=== PATIENT | male | born 1970 | race Caucasian/White ===

== ENCOUNTER 2024-11-19 15:40 | Inpatient (IN) | payer BC, SELFPAY ==
[2024-11-19] VITALS (7 sets, daily range): BP systolic 108–122; BP diastolic 68–87; PULSE 68–98; RESP 16–18; TEMP 36.5–36.7; O2SAT 95–100; BMI 32.5; BMI 31.4
--- NOTE | 2024-11-19 16:41 | EX.ED.SAOD ---
HPI History of Present Illness Chief Complaint: ETOH Intox Narrative Narrative: 54-year-old male past medical history of diabetes and hypertension presents for detox from alcohol. He states that he has been drinking alcohol since he was 18 years old. He presents with his family who state that he has had problems with alcohol, and low potassium and magnesium as well. His last drink of alcohol was prior to arrival. He and his family state that he drinks at least 1/5 and a half of vodka daily if not more. Additionally, they state that they had a conversation at 10 AM this morning, where he expressed that he wanted to enter detox. He has never been in a formal detox or rehab program. They state that he was admitted at [facility] for psychiatric reasons last year. It was after he became belligerent. [facility] Medical History Diabetes Alcohol abuse Hypertension Allergy/AdvReac Type Severity Reaction Status Date / Time No Known Allergies Allergy Verified 11/19/24 15:43 Social History Smoking Status: Never smoker ROS ROS ED ROS Narrative Limited secondary to alcohol intoxication. Constitutional: No fever, no chills. Positive fatigue. HEENT: No sore throat. No neck pain. No loss of vision. No rhinorrhea. Cardiovascular: No chest pain. No palpitations. No pedal edema. Respiratory: No cough, no shortness of breath. Abdominal: No abdominal pain. No nausea. No vomiting. Genitourinary: No dysuria. No hematuria. Musculoskeletal: No myalgias. No arthralgias. Neurologic: No headaches. No dizziness. No lightheadedness. Skin: No rash. No change in color. Psychiatric: No depression. No anxiety. EXAM Physical Exam Narrative Exam Narrative: Afebrile. Vital signs noted. Nontoxic-appearing. Appears mildly intoxicated. Cardiovascular examination regular rate and rhythm. Lungs clear to auscultation bilaterally. Abdomen is soft, nontender, with positive bowel sounds. Slightly slurred and sluggish speech secondary to intoxication. Otherwise nonfocal and nonlateralizing. Const Vital Signs: 11/19/24 15:42 11/19/24 17:09 11/19/24 17:42 Temperature 98.1 F Temperature Source Oral Pulse Rate 97 98 68 Respiratory Rate 16 16 18 Blood Pressure 122/82 H 108/68 Blood Pressure Mean 95 81 Pulse Ox 100 98 98 Oxygen Delivery Method Room Air Room Air Room Air MDM MDM MDM Narrative Medical decision making narrative: Patient presents for detox from alcohol. I suspect that he is acutely intoxicated, and have low concern for alcohol withdrawal currently. Medical screening labs were obtained. I had a lengthy discussion with the patient and his family that this is an admission for detox from alcohol and not long-term rehab. It was also explained to them that this is voluntary on behalf the patient, and that there is a possibility that once sober that he can sign out AGAINST MEDICAL ADVICE. I reviewed his laboratory work and his screening labs are grossly unremarkable except for hemoglobin of 12.3, potassium is low at 2.7, magnesium normal at 1.6, AST elevated at 114 consistent with alcohol use. Sodium is low at 129 with chloride 94. Alcohol level elevated at 353. Upon independent examination with the patient, he states he does want detox. I discussed patient with Dr. Nolberto Goldman for admission to the medical surgical floor. Patient is in stable condition. History & Record Review Discussion w/independent historian: Patient and Family Lab Data Attestation: I reviewed the patient's lab results. Labs: Laboratory Results - last 24 hr 11/19/24 16:44 WBC 9.8 RBC 3.57 L Hgb 12.3 L Hct 33.5 L MCV 93.8 MCH 34.5 H MCHC 36.7 H RDW Std Deviation 44.4 H RDW Coeff of Alta 12.9 Plt Count 174 MPV 9.9 Immature Gran % (Auto) 0.400 Neut % (Auto) 67.2 Lymph % (Auto) 19.8 Rice % (Auto) 10.9 H Eos % (Auto) 0.7 Baso % (Auto) 1.0 Absolute Neuts (auto) 6.6 Absolute Lymphs (auto) 1.94 Nucleated RBC % 0 Sodium 129 L Potassium 2.7 L* Chloride 94 L Carbon Dioxide 21.0 Anion Gap 15 BUN 13 Creatinine 0.66 L Estim Creat Clear Calc 167.90 Est GFR (MDRD) Af Amer 160 Est GFR (MDRD) Non-Af 132 BUN/Creatinine Ratio 19.5 Glucose 111 H Calcium 8.7 Magnesium 1.6 Total Bilirubin 0.50 AST 114 H ALT 61 Alkaline Phosphatase 100 Total Protein 7.0 Albumin 3.2 Globulin 3.8 Albumin/Globulin Ratio 0.8 L Ethyl Alcohol 353.0 H* Management Discussion w/another healthcare provider: Hospitalist (Dr. Nolberto Goldman) Discharge Plan Dx/Rx/DC Orders Clinical Impression: Acute alcohol intoxication, Desire for detoxification, Hypokalemia Disposition Disposition: Acute Care Hospital [facility] Discharge Date/Time: 11/19/24 19:28
[2024-11-19 16:58] LABS: Absolute Lymphocyte Count 1.94 X10^3/uL (0.83-4.51); Absolute Neutrophil Count 6.6 X10^3/uL (2.0-7.7); Eosinophil# 0.07 X10^3/uL; Eosinophils% 0.7 % (0-5); Hematocrit 33.5 % (40-54); Hemoglobin 12.3 g/dL (13.0-16.5); Lymphocyte # 1.94 X10^3/ul (0.83-4.51); Lymphocyte % 19.8 % (19-41); Mean Corp Hgb Conc 36.7 g/dL (32-36); Mean Corpuscular Hgb 34.5 pg (27.0-32.0); Mean Corpuscular Volume 93.8 fL (80-94); Mean Platelet Vol. 9.9 fl (6.2-12.0); Monocyte# 1.07 X10^3/uL; Monocyte% 10.9 % (0-10); NRBC Flagged by Analyzer 0 % (0-5); Neutrophil % 67.2 % (47-70); Platelet Count 174 K/mm3 (150-450); RBC Distribution Width CV 12.9 % (11.6-14.6); RBC Distribution Width SD 44.4 fl (35.1-43.9); Red Blood Count 3.57 M/mm3 (4.6-6.2); White Blood Count 9.8 K/mm3 (4.4-11.0)
[2024-11-19 17:23] LABS: ALB/GLOB Ratio 0.8 RATIO (0.9-2.4); AST(SGOT) 114 U/L (15-37); Alanine Aminotransfer ALT/SGPT 61 U/L (16-61); Albumin, Serum 3.2 g/dL (3.2-5.0); Alkaline Phosphatase 100 U/L (45-117); Anion Gap 15 (5-15); BUN 13 mg/dL (7-18); BUN/Creat Ratio 19.5 RATIO (10-20); Calcium,Total 8.7 mg/dL (8.5-10.1); Chloride 94 mmol/L (98-107); Creatinine, Serum 0.66 mg/dL (0.70-1.30); EST Glomerular Filtration Rate 132 mL/min (>60); Est Glom Filt Rate - Afr Amer 160 mL/min (>60); Globulin 3.8 g/dL (2.2-4.2); Glucose 111 mg/dL (74-106); Magnesium 1.6 mg/dL (1.6-2.6); Potassium 2.7 mmol/L (3.5-5.1); Sodium Level 129 mmol/L (136-145)
[2024-11-19] MEDS: Potassium Chloride 10mEq/100mL 10 MEQ/100 ML IV.SOLN. 100 MEQ IV BOLUS ×4 (18:12→21:33)
--- NOTE | 2024-11-19 18:17 | PCM.HP.STD ---
HPI - General General Date of Admission: 11/19/24 Date of Service: 11/19/24 Chief Complaint: Desire for detoxification HPI Narrative YUSUF MANZO, is a 54 M who presents with past medical history significant diabetes mellitus type 2, essential hypertension, who presented to the emergency department with desire for detoxification. Patient reports heavy use of alcohol. Drinks almost a bottle of vodka on a daily basis. Patient had apparently tried to wean himself off alcohol but relapsed. Diagnostic data in the ED was significant for EtOH level of 353, sodium of 129 and potassium of 2.7. Admitted to regular nursing floor for initiation of his medical stabilization [facility] Medical History Diabetes Alcohol abuse Hypertension Allergy/AdvReac Type Severity Reaction Status Date / Time No Known Allergies Allergy Verified 11/19/24 15:43 Social History Smoking Status: Never smoker ROS ROS Narrative GENERAL: denies fever, chills, night sweats, weight loss, anorexia HEENT: denies headache, sinus congestion, or drainage, dysphagia RESPIRATORY: denies cough, sputum production, shortness of breath, dyspnea on exertion CARDIAC: denies chest pain, palpitations, orthopnea, PND GASTROINTESTINAL: denies abdominal pain, nausea, vomiting, melena, GENITOURINARY: denies dysuria, urgency, frequency, heamaturia EXTREMITY: denies swelling MUSCULOSKELETAL: denies current joint pain or tenderness NEUROLOGIC: denies focal numbness, weakness, tingling HEMATOLOGIC: denies easy bruising and/or hemorrhage INTEGUMENT: denies rashes PSYCHIATRIC: denies suicidal or homicidal ideation Vital Signs Vital Signs Vital Signs: 11/19/24 15:42 11/19/24 17:09 11/19/24 17:42 Temperature 98.1 F Temperature Source Oral Pulse Rate 97 98 68 Respiratory Rate 16 16 18 Blood Pressure 122/82 H 108/68 Blood Pressure Mean 95 81 Pulse Ox 100 98 98 Oxygen Delivery Method Room Air Room Air Room Air Weight Weight: 112.083 kg Body Mass Index (BMI) 32.5 Physical Exam Narrative GENERAL: cooperative HEENT: Atraumatic; normocephalic EYES; Anicteric, Normal Conjunctiva NECK; supple, normal thyroid, RESPIRATORY: Diminished to auscultation CARDIOVASCULAR: Regular S1 S2, GI: soft, normoactive bowel sounds, : No Renal angle tenderness; EXTREMITIES: No edema, no clubbing, MUSCULOSKELETAL: no muscle wasting NEURO: Awake; no lateralizing signs. SKIN: No Rash PSYCH; Flat affect Results Lab / Micro Data 11/19/24 16:44 11/19/24 16:44 Labs: Laboratory Results - last 24 hr 11/19/24 16:44: WBC 9.8, RBC 3.57 L, Hgb 12.3 L, Hct 33.5 L, MCV 93.8, MCH 34.5 H, MCHC 36.7 H, RDW Std Deviation 44.4 H, RDW Coeff of Alta 12.9, Plt Count 174, MPV 9.9, Immature Gran % (Auto) 0.400, Neut % (Auto) 67.2, Lymph % (Auto) 19.8, [place] % (Auto) 10.9 H, Eos % (Auto) 0.7, Baso % (Auto) 1.0, Absolute Neuts (auto) 6.6, Absolute Lymphs (auto) 1.94, Nucleated RBC % 0, Sodium 129 L, Potassium 2.7 L*, Chloride 94 L, Carbon Dioxide 21.0, Anion Gap 15, BUN 13, Creatinine 0.66 L, Estim Creat Clear Calc 167.90, Est GFR (MDRD) Af Amer 160, Est GFR (MDRD) Non-Af 132, BUN/Creatinine Ratio 19.5, Glucose 111 H, Calcium 8.7, Magnesium 1.6, Total Bilirubin 0.50, AST 114 H, ALT 61, Alkaline Phosphatase 100, Total Protein 7.0, Albumin 3.2, Globulin 3.8, Albumin/Globulin Ratio 0.8 L, Ethyl Alcohol 353.0 H* Assessment & Plan Assessment/Plan (1) Hypokalemia: (2) Desire for detoxification: (3) Diabetes mellitus, type 2: (4) Essential hypertension: (5) Hyponatremia: (6) Tobacco dependence: (7) Obesity (BMI 30.0-34.9): PLAN: Patient is a 54-year-old gentleman with history of chronic alcohol dependence presented with desire to undergo medical stabilization 1. Chronic alcohol dependence at risk for withdrawal - Patient has been admitted for treatment with phenobarb taper in addition to adjuvant medications including gabapentin, Bentyl, hydroxyzine and clonidine as needed for alcohol withdrawal symptoms. Patient was also placed on thiamine and folic acidConsultation [facility] to [facility] counseling services 2. Hyponatremia ? Secondary to beer potomania patient did receive IV fluids repeat labs ordered in a.m. for follow-up 3. Hypokalemia ? Patient did receive potassium supplementation repeat K levels ordered for a.m. 4. Hypomagnesemia ? Patient started on magnesium chloride 5. Tobacco dependence ? Counseled on cessation, offered nicotine patch for tobacco cravings 6. Essential hypertension ? Plan is to resume patient home meds once his med rec has been completed 7. Diabetes mellitus type II -patient's oral hypoglycemics held. Placed on Accu-Cheks a.c. and at bedtime and covered with sliding scale insulin 8. Class I obesity with BMI of 33 ? Complicating care weight loss advised 9. DVT prophylaxis ? On enoxaparin Time spent in the patient's overall evaluation,decision-making process, review of diagnostic data, adjustment of management, discussion with other providers, nursing nursing and ancillary staff involved in patient's care documentation,75 Minutes Advance planning; did discuss with the patient and family regarding advanced directives as well as CODE STATUS. Did explain the various scenarios involved ( FULL CODE, DNR CCA, DNR CCA with no intubation, and DNR CC and what each meant) patient elected to remain full code with CPR and intubation if needed. Order was placed. Time spent on discussion 16 minutes. Charges/Coding Multi Select Codes Visit Charges Visit Charges: 10427 Init Hosp L3 Hospitalists' Procedures Procedures: 89201 Advncd Care Plan 30 Min
[2024-11-19 19:43] LABS: Amphetamine Urine VISTA NEGATIVE (<1000 ng/mL); Barbiturate Urine VISTA NEGATIVE (< 200 ng/mL); Benzodiazepine Urine VISTA POSITIVE (< 200 ng/mL); Cocaine Urine VISTA NEGATIVE (< 300 ng/mL); Ecstacy Urine VISTA NEGATIVE (< 500 ng/mL); Methadone Urine VISTA NEGATIVE (< 300 ng/mL); PCP Urine VISTA NEGATIVE (< 25 ng/mL); THC Urine VISTA NEGATIVE (< 50 ng/mL); Vista UDS pH Range 5
[2024-11-19] MEDS: Phenobarbital 32.4 MG Tablet 64.8 MG PO ×2 (20:23→23:33)
[2024-11-19] MEDS: Potassium Chloride Oral Tablet 20 MEQ 40 MEQ PO (20:23)
[2024-11-19] MEDS: Lactated Ringers 1,000 ML 125 ML IV (20:23)
[2024-11-19 20:49] LABS: Bedside Glucose 89 mg/dL (74-106)
[2024-11-20] MEDS: Phenobarbital 32.4 MG Tablet 64.8 MG PO ×5 (03:27→20:16)
[2024-11-20 03:31] VITALS: BP 144/72; PULSE 88; RESP 18; TEMP 36.7
[2024-11-20 06:33] LABS: Absolute Lymphocyte Count 0.82 X10^3/uL (0.83-4.51); Absolute Neutrophil Count 3.1 X10^3/uL (2.0-7.7); Basophil# 0.07 X10^3/uL; Basophil% 1.5 % (0-1); Eosinophil# 0.04 X10^3/uL; Eosinophils% 0.9 % (0-5); Hematocrit 30.9 % (40-54); Hemoglobin 11.2 g/dL (13.0-16.5); Lymphocyte # 0.82 X10^3/ul (0.83-4.51); Lymphocyte % 17.6 % (19-41); Mean Corp Hgb Conc 36.2 g/dL (32-36); Mean Corpuscular Hgb 34.6 pg (27.0-32.0); Mean Corpuscular Volume 95.4 fL (80-94); Mean Platelet Vol. 10.9 fl (6.2-12.0); Monocyte# 0.59 X10^3/uL; Monocyte% 12.7 % (0-10); NRBC Flagged by Analyzer 0 % (0-5); Neutrophil # 3.12 X10^3/uL (2.7-7.7); Neutrophil % 66.9 % (47-70); Platelet Count 139 K/mm3 (150-450); RBC Distribution Width CV 12.9 % (11.6-14.6); RBC Distribution Width SD 44.7 fl (35.1-43.9); Red Blood Count 3.24 M/mm3 (4.6-6.2); White Blood Count 4.7 K/mm3 (4.4-11.0)
[2024-11-20 07:27] LABS: Bedside Glucose 129 mg/dL (74-106)
[2024-11-20 07:27] LABS: ALB/GLOB Ratio 0.9 RATIO (0.9-2.4); AST(SGOT) 74 U/L (15-37); Alanine Aminotransfer ALT/SGPT 48 U/L (16-61); Albumin, Serum 2.8 g/dL (3.2-5.0); Alkaline Phosphatase 93 U/L (45-117); Anion Gap 9 (5-15); BUN 9 mg/dL (7-18); BUN/Creat Ratio 17.1 RATIO (10-20); Calcium,Total 8.4 mg/dL (8.5-10.1); Chloride 99 mmol/L (98-107); Creatinine, Serum 0.53 mg/dL (0.70-1.30); EST Glomerular Filtration Rate 173 mL/min (>60); Est Glom Filt Rate - Afr Amer 209 mL/min (>60); Estimated Creatinine Clearance 205.36 ml/min; Globulin 3.2 g/dL (2.2-4.2); Glucose 141 mg/dL (74-106); Magnesium 1.7 mg/dL (1.6-2.6); Phosphorus 2.9 mg/dL (2.5-4.9); Sodium Level 133 mmol/L (136-145)
--- NOTE | 2024-11-20 07:38 | PCM.PN.HOSP ---
Reason for Visit Reason for Visit: Diagnoses Type 2 diabetes mellitus without complications (11/19/24) Obesity, class 1 (11/19/24) Hypo-osmolality and hyponatremia (11/19/24) Hypokalemia (11/19/24) Nicotine dependence, unspecified, uncomplicated (11/19/24) Essential (primary) hypertension (11/19/24) Subjective Subjective Patient is a 54-year-old gentleman with history of chronic codependence admitted with alcohol intoxication at risk for alcohol withdrawal. Patient had significant electrolyte abnormalities including hypomagnesemia and hypokalemia admitted to regular nursing floor where patient is currently being managed Objective Data Objective Data Vital Signs: Vital Signs Temp Pulse Resp BP Pulse Ox O2 Del Method 98.1 F 88 18 144/72 H 95 Room Air 11/20/24 03:31 11/20/24 03:31 11/20/24 03:31 11/20/24 03:31 11/19/24 23:38 11/20/24 03:31 Oxygen Delivery Method Room Air Weight: 107.955 kg Body Mass Index (BMI) 31.4 Intake & Output: Intake and Output for Last 24 Hours 11/18/24 11/19/24 11/20/24 23:59 23:59 23:59 Intake Total 640 / 640 1000 / 1000 Balance 640 / 640 1000 / 1000 Lab / Micro Data 11/20/24 06:07 11/20/24 06:07 Labs: Laboratory Results - last 24 hr 11/19/24 16:44: WBC 9.8, RBC 3.57 L, Hgb 12.3 L, Hct 33.5 L, MCV 93.8, MCH 34.5 H, MCHC 36.7 H, RDW Std Deviation 44.4 H, RDW Coeff of Alta 12.9, Plt Count 174, MPV 9.9, Immature Gran % (Auto) 0.400, Neut % (Auto) 67.2, Lymph % (Auto) 19.8, [place] % (Auto) 10.9 H, Eos % (Auto) 0.7, Baso % (Auto) 1.0, Absolute Neuts (auto) 6.6, Absolute Lymphs (auto) 1.94, Nucleated RBC % 0, Sodium 129 L, Potassium 2.7 L*, Chloride 94 L, Carbon Dioxide 21.0, Anion Gap 15, BUN 13, Creatinine 0.66 L, Estim Creat Clear Calc 167.90, Est GFR (MDRD) Af Amer 160, Est GFR (MDRD) Non-Af 132, BUN/Creatinine Ratio 19.5, Glucose 111 H, Calcium 8.7, Magnesium 1.6, Total Bilirubin 0.50, AST 114 H, ALT 61, Alkaline Phosphatase 100, Total Protein 7.0, Albumin 3.2, Globulin 3.8, Albumin/Globulin Ratio 0.8 L, Ethyl Alcohol 353.0 H* 11/19/24 19:20: Urine Opiates Screen NEGATIVE, Urine Methadone Screen NEGATIVE, Ur Barbiturates Screen NEGATIVE, Ur Phencyclidine Scrn NEGATIVE, Ur Amphetamines Screen NEGATIVE, MDMA (Ecstasy) Screen NEGATIVE, U Benzodiazepines Scrn POSITIVE H, Urine Cocaine Screen NEGATIVE, U Cannabinoids Screen NEGATIVE, Ur Drug Screen Comment 11/19/24 20:27: POC Glucose 89 11/20/24 06:07: WBC 4.7, RBC 3.24 L, Hgb 11.2 L, Hct 30.9 L, MCV 95.4 H, MCH 34.6 H, MCHC 36.2 H, RDW Std Deviation 44.7 H, RDW Coeff of Alta 12.9, Plt Count 139 L, MPV 10.9, Immature Gran % (Auto) 0.400, Neut % (Auto) 66.9, Lymph % (Auto) 17.6 L, [place] % (Auto) 12.7 H, Eos % (Auto) 0.9, Baso % (Auto) 1.5 H, Absolute Neuts (auto) 3.1, Absolute Lymphs (auto) 0.82 L, Nucleated RBC % 0, Sodium 133 L, Potassium 3.0 L, Chloride 99, Carbon Dioxide 25.0, Anion Gap 9, BUN 9, Creatinine 0.53 L, Estim Creat Clear Calc 205.36, Est GFR (MDRD) Af Amer 209, Est GFR (MDRD) Non-Af 173, BUN/Creatinine Ratio 17.1, Glucose 141 H, Calcium 8.4 L, Phosphorus 2.9, Magnesium 1.7, Total Bilirubin 0.50, AST 74 H, ALT 48, Alkaline Phosphatase 93, Total Protein 6.0 L, Albumin 2.8 L, Globulin 3.2, Albumin/Globulin Ratio 0.9 11/20/24 07:06: POC Glucose 129 H Physical Exam Narrative GENERAL: cooperative HEENT: Atraumatic; normocephalic EYES; Anicteric, Normal Conjunctiva NECK; supple, normal thyroid, RESPIRATORY: Diminished to auscultation CARDIOVASCULAR: Regular S1 S2, GI: soft, normoactive bowel sounds, : No Renal angle tenderness; EXTREMITIES: No edema, no clubbing, MUSCULOSKELETAL: no muscle wasting NEURO: Awake; no lateralizing signs. SKIN: No Rash PSYCH; Flat affect Assessment & Plan Assessment/Plan (1) Hypokalemia: (2) Desire for detoxification: (3) Diabetes mellitus, type 2: (4) Essential hypertension: (5) Hyponatremia: (6) Tobacco dependence: (7) Obesity (BMI 30.0-34.9): PLAN: Patient is a 54-year-old gentleman with history of chronic alcohol dependence presented with desire to undergo medical stabilization 1. Chronic alcohol dependence at risk for withdrawal - Patient has been admitted for treatment with phenobarb taper in addition to adjuvant medications including gabapentin, Bentyl, hydroxyzine and clonidine as needed for alcohol withdrawal symptoms. Patient was also placed on thiamine and folic acidConsultation placed to 180 counseling services 2. Hyponatremia ? Secondary to beer potomania patient did receive IV fluids repeat labs ordered in a.m. for follow-up 3. Hypokalemia ? Patient did receive potassium supplementation repeat K levels ordered for a.m. 4. Hypomagnesemia ? Patient started on magnesium chloride 5. Tobacco dependence ? Counseled on cessation, offered nicotine patch for tobacco cravings 6. Essential hypertension ? Plan is to resume patient home meds once his med rec has been completed 7. Diabetes mellitus type II -patient's oral hypoglycemics held. Placed on Accu-Cheks a.c. and at bedtime and covered with sliding scale insulin 8. Class I obesity with BMI of 33 ? Complicating care weight loss advised 9. DVT prophylaxis ? On enoxaparin Time spent in the patient's overall evaluation,decision-making process, review of diagnostic data, adjustment of management, discussion with other providers, nursing nursing and ancillary staff involved in patient's care documentation, 50 Minutes Charges/Coding Visit Charges Inpatient E&M: 55569 [facility] Hosp L3
[2024-11-20 07:43] VITALS: BP 120/68; PULSE 89; RESP 16; TEMP 36.7; O2SAT 96
--- NOTE | 2024-11-20 07:43 | NURSING ---
pt a&Ox3. no distress noted. s/s of withdrawl assessed. pt states tremors are his worse symptom at this time. pt also c/o feeling of a pinched nerve pain under his shoulder blade, pt states this pain is producible with the movement of his head/neck. pt states symptoms have been occurring for approximately 1 week and he has been taking prescription strength ibuprofen at home for it. verbalized he was told in the past he could not take tylenol due to a diabetic medication he had been on. apart from pain no other neurological symptoms appreciated. physician contacted and patient informed this nurse or FUNCTIONAL ANALYST would administer ordered medication when available from pharmacy. Pt denies all further needs. call light within reach. FUNCTIONAL ANALYST documentation reviewed.
[2024-11-20] MEDS: Ibuprofen 400 MG Tablet 800 MG PO (08:17)
[2024-11-20] MEDS: Folic Acid 1 MG Tablet PO (08:17)
[2024-11-20] MEDS: Magnesium Chloride 64 MG Delay Rel.Tablet 128 MG PO ×2 (08:17→22:11)
[2024-11-20] MEDS: Aspirin E.C. 81 MG Tablet PO (08:17)
[2024-11-20 08:18] VITALS: PULSE 89
[2024-11-20] MEDS: Thiamine Hydrochloride 100 MG Tablet PO (08:18)
[2024-11-20] MEDS: Metoprolol(XL)Succ 25 MG Tablet PO (08:18)
[2024-11-20] MEDS: Lisinopril 40 MG Tablet PO (08:18)
[2024-11-20] MEDS: Enoxaparin 40 MG/0.4 ML Syringe SC (08:18)
[2024-11-20 11:15] LABS: Bedside Glucose 236 mg/dL (74-106)
[2024-11-20 11:43] VITALS: BP 139/80; PULSE 103; RESP 18; TEMP 36.2; O2SAT 97
[2024-11-20] MEDS: Insulin Lispro 100 UNIT/ML INSULN.PEN SC ×2 (12:02→17:04)
[2024-11-20 15:23] VITALS: BP 121/68; PULSE 80; RESP 18; TEMP 36.4; O2SAT 98
--- NOTE | 2024-11-20 16:37 | ADDICTION ---
Pt was met with to complete his [facility] assessment, ASAM, DUDIT, AUDIT, Mt. Stat., and D/C Plan. Pt presents as a 54 yr old male, admitted to [facility] to address his severe alcohol use disorder and w/d sxs. Pt admits that he does not have a problem with alcohol but he does drink almost two gallons of vodka every week. Pt admits he drinks from the time he gets off work until the time he passes out, every single day, but he does not believe it is a problem. He is currently on probation, facing probation violations, and facing pending criminal charges that are his motivation for seeking tx. Pt is scheduled to follow up with [facility] office for SAULO and MH tx services. Pt states his sister in law, Lissette Mendoza, will transport him back to his brother's home, once d/c'd from [facility].
[2024-11-20 16:47] LABS: Bedside Glucose 261 mg/dL (74-106)
[2024-11-20 20:18] VITALS: BP 138/86; PULSE 88; RESP 16; TEMP 36.6; O2SAT 98
[2024-11-20 23:00] LABS: Bedside Glucose 137 mg/dL (74-106)
[2024-11-21] VITALS (7 sets, daily range): BP systolic 118–143; BP diastolic 79–89; PULSE 69–873; RESP 16–18; TEMP 36.3–36.8; O2SAT 95–98
[2024-11-21] MEDS: Gabapentin 300 MG Capsule PO ×2 (00:02→15:30)
[2024-11-21] MEDS: Phenobarbital 32.4 MG Tablet 64.8 MG PO ×6 (04:32→20:42)
[2024-11-21 07:07] LABS: Bedside Glucose 149 mg/dL (74-106)
--- NOTE | 2024-11-21 07:26 | PN.HOSP_ITS ---
Reason for Visit Reason for Visit: Diagnoses Type 2 diabetes mellitus without complications (11/19/24) Obesity, class 1 (11/19/24) Hypo-osmolality and hyponatremia (11/19/24) Hypokalemia (11/19/24) Nicotine dependence, unspecified, uncomplicated (11/19/24) Essential (primary) hypertension (11/19/24) Subjective Subjective Patient seen has tolerated phenobarb taper well so far. Diagnostic data reviewed significant for potassium of 3.3 additional potassium replacement given. Objective Data Objective Data Vital Signs: Vital Signs Temp Pulse Resp BP Pulse Ox O2 Del Method 98.1 F 73 16 118/79 95 Room Air 11/21/24 04:34 11/21/24 04:34 11/21/24 04:34 11/21/24 04:34 11/21/24 04:34 11/21/24 04:34 Oxygen Delivery Method Room Air Weight: 107.955 kg Body Mass Index (BMI) 31.4 Intake & Output: Intake and Output for Last 24 Hours 11/19/24 11/20/24 11/21/24 23:59 23:59 23:59 Intake Total 640 / 640 1000 / 1300 600 / 600 Balance 640 / 640 1000 / 1300 600 / 600 Medical Nutrition Assessment Dietitian: Malnutrition Criteria Met Start: 11/20/24 11:47 Freq: Status: Active Protocol: Document 11/20/24 11:47 CIARRA (Rec: 11/20/24 11:47 CIARRA [id number]) Nutrition Malnutrition Evidence of Malnutrition Exists Yes Malnutrition (severe): Social/Behavioral/ Environmental Evidenced By Suboptimal Energy Intake ( Severe),Weight Loss (Severe) Clinical Problem Acute Disease or Injury Related Malnutrition Etiology related to issues w/ alcohol withdrawal and recent acute illness Signs/Symptoms as evidenced by ~11% unintended wt loss and po intake <75% of est nutritional needs in past 2 months Status Active Problem Recommendation Dietitian Recommendations/Changes Will change diet to CHO Controlled diet w/ snacks 3x/ day as tolerated Monitor need for ONS pending continued po intake / wt trends Lab / Micro Data 11/21/24 07:28 11/21/24 07:28 Labs: Laboratory Results - last 24 hr 11/20/24 06:07: Sodium 133 L, Potassium 3.0 L, Chloride 99, Carbon Dioxide 25.0, Anion Gap 9, BUN 9, Creatinine 0.53 L, Estim Creat Clear Calc 205.36, Est GFR (MDRD) Af Amer 209, Est GFR (MDRD) Non-Af 173, BUN/Creatinine Ratio 17.1, G lucose 141 H, Calcium 8.4 L, Phosphorus 2.9, Magnesium 1.7, Total Bilirubin 0.50, AST 74 H, ALT 48, Alkaline Phosphatase 93, Total Protein 6.0 L, Albumin 2.8 L, Globulin 3.2, Albumin/Globulin Ratio 0.9 11/20/24 07:06: POC Glucose 129 H 11/20/24 10:57: POC Glucose 236 H 11/20/24 16:28: POC Glucose 261 H 11/20/24 22:06: POC Glucose 137 H 11/21/24 06:50: POC Glucose 149 H Physical Exam Narrative GENERAL: cooperative HEENT: Atraumatic; normocephalic EYES; Anicteric, Normal Conjunctiva NECK; supple, normal thyroid, RESPIRATORY: Diminished to auscultation CARDIOVASCULAR: Regular S1 S2, GI: soft, normoactive bowel sounds, : No Renal angle tenderness; EXTREMITIES: No edema, no clubbing, MUSCULOSKELETAL: no muscle wasting NEURO: Awake; no lateralizing signs. SKIN: No Rash PSYCH; Flat affect Assessment & Plan Assessment/Plan (1) Hypokalemia: (2) Desire for detoxification: (3) Diabetes mellitus, type 2: (4) Essential hypertension: (5) Hyponatremia: (6) Tobacco dependence: (7) Obesity (BMI 30.0-34.9): PLAN: Patient is a 54-year-old gentleman with history of chronic alcohol dependence presented with desire to undergo medical stabilization 1. Chronic alcohol dependence at risk for withdrawal - Patient has been admitted for treatment with phenobarb taper in addition to adjuvant medications including gabapentin, Bentyl, hydroxyzine and clonidine as needed for alcohol withdrawal symptoms. Patient was also placed on thiamine and folic acidConsultation placed to 180 counseling services ? 11/21/2024; patient has tolerated phenobarb taper well so far. 2. Hyponatremia ? Secondary to beer potomania patient did receive IV fluids repeat labs ordered in a.m. for follow-up 3. Hypokalemia ? Patient did receive potassium supplementation repeat K levels ordered for a.m. ? 11/21/2024; potassium still remains low additional replacement given. 4. Hypomagnesemia ? Patient started on magnesium chloride 5. Tobacco dependence ? Counseled on cessation, offered nicotine patch for tobacco cravings 6. Essential hypertension ? Plan is to resume patient home meds once his med rec has been completed 7. Diabetes mellitus type II -patient's oral hypoglycemics held. Placed on Accu-Cheks a.c. and at bedtime and covered with sliding scale insulin 8. Class I obesity with BMI of 33 ? Complicating care weight loss advised 9. DVT prophylaxis ? On enoxaparin Time spent in the patient's overall evaluation,decision-making process, review of diagnostic data, adjustment of management, discussion with other providers, nursing nursing and ancillary staff involved in patient's care documentation, 38 minutes Charges/Coding Visit Charges Inpatient E&M: 47987 Subs Hosp L2
[2024-11-21 08:01] LABS: Absolute Neutrophil Count 2.6 X10^3/uL (2.0-7.7); Basophil# 0.06 X10^3/uL; Basophil% 1.5 % (0-1); Eosinophil# 0.09 X10^3/uL; Eosinophils% 2.2 % (0-5); Hematocrit 32.1 % (40-54); Hemoglobin 11.3 g/dL (13.0-16.5); Lymphocyte % 22.1 % (19-41); Mean Corp Hgb Conc 35.2 g/dL (32-36); Mean Corpuscular Hgb 34.6 pg (27.0-32.0); Mean Corpuscular Volume 98.2 fL (80-94); Mean Platelet Vol. 10.8 fl (6.2-12.0); Monocyte# 0.41 X10^3/uL; Monocyte% 10.1 % (0-10); NRBC Flagged by Analyzer 0 % (0-5); Neutrophil # 2.59 X10^3/uL (2.7-7.7); Neutrophil % 63.6 % (47-70); Platelet Count 127 K/mm3 (150-450); RBC Distribution Width CV 13.1 % (11.6-14.6); RBC Distribution Width SD 46.7 fl (35.1-43.9); Red Blood Count 3.27 M/mm3 (4.6-6.2); White Blood Count 4.1 K/mm3 (4.4-11.0)
[2024-11-21] MEDS: Acetaminophen 500 MG Tablet PO ×2 (08:17→15:30)
[2024-11-21] MEDS: Folic Acid 1 MG Tablet PO (08:17)
[2024-11-21] MEDS: Metoprolol(XL)Succ 25 MG Tablet PO (08:17)
[2024-11-21] MEDS: Thiamine Hydrochloride 100 MG Tablet PO (08:18)
[2024-11-21] MEDS: Magnesium Chloride 64 MG Delay Rel.Tablet 128 MG PO ×2 (08:18→20:48)
[2024-11-21] MEDS: Enoxaparin 40 MG/0.4 ML Syringe SC (08:18)
[2024-11-21] MEDS: Aspirin E.C. 81 MG Tablet PO (08:19)
[2024-11-21] MEDS: Lisinopril 40 MG Tablet PO (08:19)
[2024-11-21 08:40] LABS: ALB/GLOB Ratio 0.8 RATIO (0.9-2.4); AST(SGOT) 51 U/L (15-37); Alanine Aminotransfer ALT/SGPT 34 U/L (16-61); Albumin, Serum 2.8 g/dL (3.2-5.0); Alkaline Phosphatase 93 U/L (45-117); Anion Gap 7 (5-15); BUN 4 mg/dL (7-18); BUN/Creat Ratio 9.5 RATIO (10-20); Calcium,Total 8.5 mg/dL (8.5-10.1); Chloride 105 mmol/L (98-107); Creatinine, Serum 0.42 mg/dL (0.70-1.30); EST Glomerular Filtration Rate 223 mL/min (>60); Est Glom Filt Rate - Afr Amer 270 mL/min (>60); Estimated Creatinine Clearance 259.14 ml/min; Globulin 3.5 g/dL (2.2-4.2); Glucose 150 mg/dL (74-106); Potassium 3.3 mmol/L (3.5-5.1); Protein, Total 6.3 g/dL (6.4-8.2); Sodium Level 136 mmol/L (136-145)
[2024-11-21] MEDS: Insulin Lispro 100 UNIT/ML INSULN.PEN SC ×3 (11:59→23:03)
[2024-11-21 12:11] LABS: Bedside Glucose 235 mg/dL (74-106)
[2024-11-21 15:57] LABS: Bedside Glucose 154 mg/dL (74-106)
[2024-11-21] MEDS: Ibuprofen 400 MG Tablet PO (16:23)
[2024-11-21] MEDS: Pantoprazole Sodium 40 MG Tablet PO (16:23)
[2024-11-21 23:24] LABS: Bedside Glucose 214 mg/dL (74-106)
[2024-11-22] MEDS: Phenobarbital 32.4 MG Tablet 64.8 MG PO ×3 (00:08→09:14)
[2024-11-22 03:43] VITALS: BP 132/78; PULSE 70; RESP 14; TEMP 36.6; O2SAT 96
[2024-11-22] MEDS: Insulin Lispro 100 UNIT/ML INSULN.PEN SC ×2 (06:36→12:56)
[2024-11-22 06:52] LABS: Absolute Lymphocyte Count 1.22 X10^3/uL (0.83-4.51); Basophil# 0.05 X10^3/uL; Basophil% 1.3 % (0-1); Eosinophil# 0.13 X10^3/uL; Eosinophils% 3.5 % (0-5); Hematocrit 32.2 % (40-54); Hemoglobin 11.2 g/dL (13.0-16.5); Lymphocyte # 1.22 X10^3/ul (0.83-4.51); Lymphocyte % 32.9 % (19-41); Mean Corp Hgb Conc 34.8 g/dL (32-36); Mean Corpuscular Hgb 34.5 pg (27.0-32.0); Mean Corpuscular Volume 99.1 fL (80-94); Monocyte# 0.28 X10^3/uL; Monocyte% 7.5 % (0-10); NRBC Flagged by Analyzer 0 % (0-5); Neutrophil # 2.01 X10^3/uL (2.7-7.7); Neutrophil % 54.3 % (47-70); Platelet Count 127 K/mm3 (150-450); RBC Distribution Width CV 13.1 % (11.6-14.6); RBC Distribution Width SD 47.2 fl (35.1-43.9); Red Blood Count 3.25 M/mm3 (4.6-6.2); White Blood Count 3.7 K/mm3 (4.4-11.0)
[2024-11-22 07:02] LABS: Bedside Glucose 172 mg/dL (74-106)
[2024-11-22 07:43] LABS: ALB/GLOB Ratio 0.8 RATIO (0.9-2.4); AST(SGOT) 32 U/L (15-37); Alanine Aminotransfer ALT/SGPT 27 U/L (16-61); Albumin, Serum 2.8 g/dL (3.2-5.0); Alkaline Phosphatase 90 U/L (45-117); Anion Gap 5 (5-15); BUN 5 mg/dL (7-18); BUN/Creat Ratio 12.5 RATIO (10-20); Calcium,Total 8.6 mg/dL (8.5-10.1); Chloride 106 mmol/L (98-107); EST Glomerular Filtration Rate 237 mL/min (>60); Est Glom Filt Rate - Afr Amer 287 mL/min (>60); Globulin 3.4 g/dL (2.2-4.2); Glucose 173 mg/dL (74-106); Potassium 3.5 mmol/L (3.5-5.1); Protein, Total 6.2 g/dL (6.4-8.2); Sodium Level 137 mmol/L (136-145)
--- NOTE | 2024-11-22 08:22 | PCM.DC.SUM ---
Providers Date of Admission: 11/19/24 Date of Discharge: 11/22/24 Primary Care Physician: No Primary Care Phys Reason For Visit: ACUTE ALCOHOL WITHDRAWAL HYPONATREMIA HYPOKALEMIA Diagnosis Discharge Diagnosis (1) Hypokalemia: Status: Acute Code(s): E87.6 - Hypokalemia (2) Desire for detoxification: Status: Acute (3) Diabetes mellitus, type 2: Status: Acute Code(s): E11.9 - Type 2 diabetes mellitus without complications (4) Essential hypertension: Status: Acute Code(s): I10 - Essential (primary) hypertension (5) Hyponatremia: Status: Acute Code(s): E87.1 - Hypo-osmolality and hyponatremia (6) Tobacco dependence: Status: Acute Code(s): F17.200 - Nicotine dependence, unspecified, uncomplicated (7) Obesity (BMI 30.0-34.9): Status: Acute Code(s): E66.811 - Obesity, class 1 Plan: Patient is a 54-year-old gentleman with history of chronic alcohol dependence presented with desire to undergo medical stabilization 1. Chronic alcohol dependence at risk for withdrawal - Patient has been admitted for treatment with phenobarb taper in addition to adjuvant medications including gabapentin, Bentyl, hydroxyzine and clonidine as needed for alcohol withdrawal symptoms. Patient was also placed on thiamine and folic acidConsultation placed to 180 counseling services ? 11/21/2024; patient has tolerated phenobarb taper well so far. 2. Hyponatremia ? Secondary to beer potomania patient did receive IV fluids repeat labs ordered in a.m. for follow-up 3. Hypokalemia ? Patient did receive potassium supplementation repeat K levels ordered for a.m. ? 11/21/2024; potassium still remains low additional replacement given. 4. Hypomagnesemia ? Patient started on magnesium chloride 5. Tobacco dependence ? Counseled on cessation, offered nicotine patch for tobacco cravings 6. Essential hypertension ? Plan is to resume patient home meds once his med rec has been completed 7. Diabetes mellitus type II -patient's oral hypoglycemics held. Placed on Accu-Cheks a.c. and at bedtime and covered with sliding scale insulin 8. Class I obesity with BMI of 33 ? Complicating care weight loss advised 9. DVT prophylaxis ? On enoxaparin Time spent in the patient's overall evaluation,decision-making process, review of diagnostic data, adjustment of management, discussion with other providers, nursing nursing and ancillary staff involved in patient's care documentation, 38 minutes Medications at Discharge Home Medications aspirin 81 mg tablet,delayed release (Adult Aspirin Regimen) 81 mg PO DAILY blood thinner 11/19/24 cyclobenzaprine 10 mg tablet 10 mg PO QHS PRN PRN muscle spasm 11/19/24 glipizide 5 mg tablet 5 mg PO DAILY dm 11/19/24 lisinopril 40 mg tablet 40 mg PO DAILY bp 11/19/24 magnesium oxide 400 mg (241.3 mg magnesium) tablet 400 mg PO BID supplement 11/19/24 metoprolol succinate 25 mg tablet,extended release 24 hr 25 mg PO DAILY heart 11/19/24 thiamine HCl (vitamin B1) 100 mg tablet 100 mg PO DAILY supplememt 11/19/24 Physical Exam Narrative GENERAL: cooperative HEENT: Atraumatic; normocephalic EYES; Anicteric, Normal Conjunctiva NECK; supple, normal thyroid, RESPIRATORY: Diminished to auscultation CARDIOVASCULAR: Regular S1 S2, GI: soft, normoactive bowel sounds, : No Renal angle tenderness; EXTREMITIES: No edema, no clubbing, MUSCULOSKELETAL: no muscle wasting NEURO: Awake; no lateralizing signs. SKIN: No Rash PSYCH; Flat affect Medical Records Data Medical Nutrition Assessment Dietitian: Malnutrition Criteria Met Start: 11/20/24 11:47 Freq: Status: Active Protocol: Document 11/20/24 11:47 [facility] (Rec: 11/20/24 11:47 [facility] [id number]) Nutrition Malnutrition Evidence of Malnutrition Exists Yes Malnutrition (severe): Social/Behavioral/ Environmental Evidenced By Suboptimal Energy Intake ( Severe),Weight Loss (Severe) Clinical Problem Acute Disease or Injury Related Malnutrition Etiology related to issues w/ alcohol withdrawal and recent acute illness Signs/Symptoms as evidenced by ~11% unintended wt loss and po intake <75% of est nutritional needs in past 2 months Status Active Problem Recommendation Dietitian Recommendations/Changes Will change diet to CHO Controlled diet w/ snacks 3x/ day as tolerated Monitor need for ONS pending continued po intake / wt trends Weight / BMI Weight Weight: 107.955 kg Body Mass Index (BMI) 31.4 ABG / Lab / Microbiology Data 11/22/24 06:10 11/22/24 06:10 Laboratory: Laboratory Results - last 24 hr 11/21/24 07:28: Sodium 136, Potassium 3.3 L, Chloride 105, Carbon Dioxide 24.0, Anion Gap 7, BUN 4 L, Creatinine 0.42 L, Estim Creat Clear Calc 259.14, Est GFR (MDRD) Af Amer 270, Est GFR (MDRD) Non-Af 223, BUN/Creatinine Ratio 9.5 L, Glucose 150 H, Calcium 8.5, Total Bilirubin 0.70, AST 51 H, ALT 34, Alkaline Phosphatase 93, Total Protein 6.3 L, Albumin 2.8 L, Globulin 3.5, Albumin/Globulin Ratio 0.8 L 11/21/24 11:47: POC Glucose 235 H 11/21/24 15:36: POC Glucose 154 H 11/21/24 23:01: POC Glucose 214 H 11/22/24 06:10: WBC 3.7 L, RBC 3.25 L, Hgb 11.2 L, Hct 32.2 L, MCV 99.1 H, MCH 34.5 H, MCHC 34.8, RDW Std Deviation 47.2 H, RDW Coeff of [place] 13.1, Plt Count 127 L, MPV 11.0, Immature Gran % (Auto) 0.500, Neut % (Auto) 54.3, Lymph % (Auto) 32.9, [place] % (Auto) 7.5, Eos % (Auto) 3.5, Baso % (Auto) 1.3 H, Absolute Neuts (auto) 2.0, Absolute Lymphs (auto) 1.22, Nucleated RBC % 0, Sodium 137, Potassium 3.5, Chloride 106, Carbon Dioxide 26.0, Anion Gap 5, BUN 5 L, Creatinine 0.40 L, Estim Creat Clear Calc 272.10, Est GFR (MDRD) Af Amer 287, Est GFR (MDRD) Non-Af 237, BUN/Creatinine Ratio 12.5, Glucose 173 H, Calcium 8.6, Total Bilirubin 0.50, AST 32, ALT 27, Alkaline Phosphatase 90, Total Protein 6.2 L, Albumin 2.8 L, Globulin 3.4, Albumin/Globulin Ratio 0.8 L 11/22/24 06:34: POC Glucose 172 H D/C Instructions Discharge Diet: No restrictions Discharge Activity: Return to Normal Activity Call your doctor if you observe: Fever of 101 or Higher, Shortness of breath, Fainting spells and Chest pain DC O2, CPAP, BIPAP Needs Home O2 Discharge instructions: No Meaningful Use Info Meaningful Use Meaningful Use Diagnoses (Choose all that apply): None applicable Ischemic Stroke Statin Dosing Therapy Reference: STATIN DOSE THERAPY REFERENCE: * Patients > 75 years receive moderate or high dose statin therapy. * Patients 75 years or YOUNGER should receive HIGH intensity statin dose unless contraindicated. You will be required to document reason for non-treatment if statin daily dose does not meet guidelines. HIGH DOSE STATIN THERAPY DAILY Atorvastatin > than or = to 40 mg Rosuvastatin > than or = to 20 mg Amlodipine + Atorvastatin > than or = to 2.5/40 mg Ezetimibe + Simvastatin 10/80 mg Simvastatin 80mg Discharge Plan Admission Admit Date/Time: 11/19/24 18:13 Attending Provider: Nolberto Goldman Primary Care Provider: Care Physician,No Primary Discharge Orders/Prescriptions Prescriptions: Continued aspirin [Adult Aspirin Regimen] 81 mg tablet,delayed release (DR/EC) 81 mg PO DAILY glipizide 5 mg tablet 5 mg PO DAILY metoprolol succinate 25 mg tablet extended release 24 hr 25 mg PO DAILY thiamine HCl (vitamin B1) 100 mg tablet 100 mg PO DAILY lisinopril 40 mg tablet 40 mg PO DAILY cyclobenzaprine 10 mg tablet 10 mg PO QHS PRN PRN (Reason: muscle spasm) magnesium oxide 400 mg (241.3 mg magnesium) tablet 400 mg PO BID Referrals / Follow Up: Care Physician,No Primary [Primary Care Provider] - Within 2 Weeks Disposition Disposition (needs filled in before D/C Order can be placed): Home, Self Care Charges/Coding Visit Charges Inpatient E&M: 30268 Disch Hosp >30min
[2024-11-22 09:02] VITALS: BP 138/88; PULSE 81; RESP 16; TEMP 36.6; O2SAT 99
[2024-11-22] MEDS: Ibuprofen 400 MG Tablet PO (09:07)
[2024-11-22] MEDS: Thiamine Hydrochloride 100 MG Tablet PO (09:08)
[2024-11-22] MEDS: Folic Acid 1 MG Tablet PO (09:08)
[2024-11-22] MEDS: Aspirin E.C. 81 MG Tablet PO (09:08)
[2024-11-22] MEDS: Lisinopril 40 MG Tablet PO (09:08)
[2024-11-22] MEDS: Magnesium Chloride 64 MG Delay Rel.Tablet 128 MG PO (09:08)
[2024-11-22 09:09] VITALS: BP 138/88; PULSE 81
[2024-11-22] MEDS: Metoprolol(XL)Succ 25 MG Tablet PO (09:09)
[2024-11-22] MEDS: Pantoprazole Sodium 40 MG Tablet PO (09:14)
--- NOTE | 2024-11-22 11:20 | PHA.DC.MR.R ---
Pharmacy [place] Med Reconciliation Pharmacy Service has performed discharge medication reconciliation for this patient. The patient's discharge medication list was reviewed for discrepancies and discrepancies were resolved. Medications at Discharge Home Medications aspirin 81 mg tablet,delayed release (Adult Aspirin Regimen) 81 mg PO DAILY blood thinner 11/19/24 cyclobenzaprine 10 mg tablet 10 mg PO QHS PRN PRN muscle spasm 11/19/24 glipizide 5 mg tablet 5 mg PO DAILY dm 11/19/24 lisinopril 40 mg tablet 40 mg PO DAILY bp 11/19/24 magnesium oxide 400 mg (241.3 mg magnesium) tablet 400 mg PO BID supplement 11/19/24 metoprolol succinate 25 mg tablet,extended release 24 hr 25 mg PO DAILY heart 11/19/24 thiamine HCl (vitamin B1) 100 mg tablet 100 mg PO DAILY supplememt 11/19/24
[2024-11-22 11:55] LABS: Bedside Glucose 223 mg/dL (74-106)
[2024-11-22 15:06] VITALS: BP 136/95; PULSE 70; RESP 16; TEMP 36.6; O2SAT 99
== END 2024-11-22 16:11 | disposition home or self-care (01) | DRG 896 ==
LOC: ED 17:48 → PCU 18:29 → MS3 18:39
PROVIDERS: Admitting Provider Internal Medicine; Emergency Provider Emergency Medicine; Referring Provider Internal Medicine; Visit Provider Internal Medicine
DX: F10.220 Alcohol dependence with intoxication, uncomplicated (principal); E43 Unspecified severe protein-calorie malnutrition; E87.1 Hypo-osmolality and hyponatremia; E11.9 Type 2 diabetes mellitus without complications; I10 Essential (primary) hypertension; F10.230 Alcohol dependence with withdrawal, uncomplicated; Z68.33 Body mass index [BMI] 33.0-33.9, adult; E83.42 Hypomagnesemia; E87.6 Hypokalemia; F17.200 Nicotine dependence, unspecified, uncomplicated; Y90.8 Blood alcohol level of 240 mg/100 ml or more; E66.811 Obesity, class 1; Z79.82 Long term (current) use of aspirin; Z79.84 Long term (current) use of oral hypoglycemic drugs; Z79.899 Other long term (current) drug therapy
CPT/HCPCS: 36415; 80053; 80307; 82077; 82962; 83735; 84100; 85025; 97802; 99284; 99406; A4216